=== PATIENT | male | born 1980 | race American Indian/Alaskan Native ===

== ENCOUNTER 2017-01-21 13:39 | Emergency (ER) | payer MEDICAID ==
[2017-01-21] MEDS ORDERED: NORCO 5/325 PO ONE (17:05)
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
[2017-01-21 23:22] VITALS: BP 169/89
== END 2017-01-21 19:45 | disposition home or self-care (01) ==
LOC: ED 13:39
DX: M25.532 Pain in left wrist (principal); M54.2 Cervicalgia; R51 Headache; I10 Essential (primary) hypertension; F17.200 Nicotine dependence, unspecified, uncomplicated; R53.1 Weakness; Z88.2 Allergy status to sulfonamides; V89.2XXA Person injured in unspecified motor-vehicle accident, traffic, initial encounter; Y92.488 Other paved roadways as the place of occurrence of the external cause; Y93.89 Activity, other specified; Y99.9 Unspecified external cause status
CPT/HCPCS: 70450; 71020; 72125

== ENCOUNTER 2017-03-30 19:03 | Emergency (ER) | payer MEDICAID ==
--- NOTE | 2017-03-30 22:14 | Emergency Department Report ---
ED Recheck HPI - General Chief Complaint: Medical Clearance Stated Complaint: MEDICATION REFILL Time Seen by Provider: 03/30/17 21:18 Source: patient Mode of arrival: Ambulatory Limitations: No Limitations - History of Present Illness Initial Comments: This is a 36-year-old male nontoxic, well nourished in appearance, no acute signs of distress presents to the ED with c/o of refill on Keppra. He was here on and received 500 mg of Keppra the patient was presents to receive 1 g of Keppra twice a day. Patient stated Dr. Carlson 's [place] neurologist prescribed him 1 g of Keppra twice a day the patient. Due to no insurance he was not able to follow up with his neurologist. Patient denies any other symptoms. Patient is asymptomatic and just wants medication refill. Patient states allergies to sulfa past medical history of hypertension and seizures. MD Complaint: medication refill request Returns Today for: request for prescription Symptoms Since Prior Visit: no new symptoms Associated Symptoms: none. denies: fever, chills, chest pain, shortness of breath, rash, malaise, nasuea, abdominal pain - Related Data Home Medications Medication Instructions Recorded Confirmed Last Taken Depakote 500 mg PO BID 03/02/17 03/02/17 Unknown Keppra 500 mg PO BID 03/02/17 03/02/17 Unknown Metoprolol 50 mg PO BID 03/02/17 03/02/17 Unknown Previous Rx's Medication Instructions Recorded Last Taken Type Acetaminophen [Acetaminophen TAB] 500 mg PO Q6HR PRN #20 tablet 01/21/17 Unknown Rx Cyclobenzaprine [Flexeril] 10 mg PO TID PRN #12 tablet 01/21/17 Unknown Rx HYDROcodone/APAP 5-325 [[place] 1 each PO Q6HR PRN #10 tablet 01/21/17 Unknown Rx 5/325] Divalproex Sodium [Depakote] 500 mg PO BID #60 tablet. 03/02/17 Unknown Rx Metoprolol [Lopressor TAB] 50 mg PO BID #60 tablet 03/02/17 Unknown Rx levETIRAcetam [Keppra TAB] 500 mg PO BID #60 tablet 03/02/17 Unknown Rx levETIRAcetam [Keppra TAB] 1,000 mg PO BID #60 tab 03/30/17 Unknown Rx Allergies Allergy/AdvReac Type Severity Reaction Status Date / Time Sulfa (Sulfonamide Allergy Unknown Verified 01/21/17 13:45 Antibiotics) ED Review of Systems ROS: Stated complaint: MEDICATION REFILL Other details as noted in HPI Constitutional: denies: chills, fever Eyes: denies: eye pain, eye discharge, vision change ENT: denies: ear pain, throat pain Respiratory: denies: cough, shortness of breath, wheezing Cardiovascular: denies: chest pain, palpitations Endocrine: no symptoms reported Gastrointestinal: denies: abdominal pain, nausea, diarrhea Genitourinary: denies: urgency, dysuria Musculoskeletal: denies: back pain, joint swelling, arthralgia Skin: denies: rash, lesions Neurological: denies: headache, weakness, paresthesias Psychiatric: denies: anxiety, depression Hematological/Lymphatic: denies: easy bleeding, easy bruising ED Past Medical Hx - Past Medical History Hx Hypertension: Yes Hx Seizures: Yes - Surgical History Additional Surgical History: aorta tear repair 11/14 - Social History Smoking Status: Unknown if ever smoked Substance Use Type: None - Medications Home Medications: Home Medications Medication Instructions Recorded Confirmed Last Taken Type Acetaminophen [Acetaminophen TAB] 500 mg PO Q6HR PRN #20 tablet 01/21/17 Unknown Rx Cyclobenzaprine [Flexeril] 10 mg PO TID PRN #12 tablet 01/21/17 03/02/17 Unknown Rx HYDROcodone/APAP 5-325 [[place] 1 each PO Q6HR PRN #10 tablet 01/21/17 03/02/17 Unknown Rx 5/325] Depakote 500 mg PO BID 03/02/17 03/02/17 Unknown History Divalproex Sodium [Depakote] 500 mg PO BID #60 tablet. 03/02/17 Unknown Rx Keppra 500 mg PO BID 03/02/17 03/02/17 Unknown History Metoprolol 50 mg PO BID 03/02/17 03/02/17 Unknown History Metoprolol [Lopressor TAB] 50 mg PO BID #60 tablet 03/02/17 Unknown Rx levETIRAcetam [Keppra TAB] 500 mg PO BID #60 tablet 03/02/17 Unknown Rx levETIRAcetam [Keppra TAB] 1,000 mg PO BID #60 tab 03/30/17 Unknown Rx ED Physical Exam - General Limitations: No Limitations General appearance: alert, in no apparent distress - Head Head exam: Present: atraumatic, normocephalic - Eye Eye exam: Present: normal appearance - ENT ENT exam: Present: mucous membranes moist - Neck Neck exam: Present: normal inspection - Respiratory Respiratory exam: Present: normal lung sounds bilaterally. Absent: respiratory distress - Cardiovascular Cardiovascular Exam: Present: regular rate, normal rhythm. Absent: systolic murmur, diastolic murmur, rubs, gallop - GI/Abdominal GI/Abdominal exam: Present: soft, normal bowel sounds - Rectal Rectal exam: Present: deferred - Extremities Exam Extremities exam: Present: normal inspection - Back Exam Back exam: Present: normal inspection - Neurological Exam Neurological exam: Present: alert, oriented X3 - Psychiatric Psychiatric exam: Present: normal affect, normal mood - Skin Skin exam: Present: warm, dry, intact, normal color. Absent: rash ED Course Vital Signs 03/30/17 19:47 Temperature 98 F Pulse Rate 77 Respiratory 18 Rate Blood Pressure 151/98 O2 Sat by Pulse 100 Oximetry - Reevaluation(s) Reevaluation #1: 03/30/17 22:12 Patient is speaking in full sentences with no signs of distress noted. ED Recheck MDM - Medical Decision Making 36-year-old male that presents with a prescription bottle from Dr. Abdoul Carlson with Keppra 1000 mg twice a day that was prescribed on 11/08/2016. He stated he is homeless and does not have insurance or any money to follow up with a neurologist. Patient is requesting for a refill of his Keppra medication. He is asymptomatic currently. I refilled his medication and offered patient follow -up clinics and providers.. Patient was notified that this medication does cause drowsiness. At time time of discharge, the patient does not seem toxic or ill in appearance. No acute signs of distress noted. Patient agrees to discharge treatment plan of care. No further questions noted by the patient. Critical care attestation.: If time is entered above; I have spent that time in minutes in the direct care of this critically ill patient, excluding procedure time. ED Disposition Clinical Impression: Medication refill Disposition: [id number] TO HOME OR SELFCARE Is pt being admited?: No Does the pt Need Aspirin: No Condition: Stable Instructions: Levetiracetam (By mouth) Additional Instructions: Follow-up with a primary care doctor in 3-5 days or if symptoms worsen and continue return to emergency room as soon as possible. Prescriptions: levETIRAcetam [Keppra TAB] 1,000 mg PO BID #60 tab Referrals: PRIMARY CARE, [Primary Care Provider] - 3-5 Days MARCELO CARMONA MD [Staff Physician] - 3-5 Days [facility] [Outside] - 3-5 Days [facility] [Outside] - 3-5 Days
[2017-03-30 23:01] VITALS: BP 150/94
== END 2017-03-30 23:01 | disposition home or self-care (01) ==
LOC: ED 19:03
DX: Z76.0 Encounter for issue of repeat prescription (principal); I10 Essential (primary) hypertension
CPT/HCPCS: 99282

== ENCOUNTER 2017-05-29 14:07 | Outpatient (CLI) | payer MEDICAID ==
[2017-05-29 14:36] LABS: Hematocrit 40.5 % (35.5-45.6); Hemoglobin 13.5 gm/dl (11.8-15.2); Mean Corpuscular HGB Conc 33 % (32-34); Mean Corpuscular Hemoglobin 28 pg (28-32); Mean Corpuscular Volume 84 fl (84-94); Platelet Count 169 K/mm3 (140-440); Red Blood Count 4.84 M/mm3 (3.65-5.03); Red Cell Distribution Width 17.4 % (13.2-15.2)
[2017-05-29 14:52] LABS: Alanine Aminotransferase 6 units/L (7-56); Albumin 3.3 g/dL (3.9-5); BUN/Creatinine Ratio 12; Blood Urea Nitrogen 11 mg/dL (9-20); Calcium 8.6 mg/dL (8.4-10.2); Hemolysis Index 0
== END 2017-05-29 14:08 | disposition home or self-care (01) ==
LOC: LAB 14:07
PROVIDERS: ATTEND Specialist
DX: G40.209 Localization-related (focal) (partial) symptomatic epilepsy and epileptic syndromes with complex partial seizures, not intractable, without status epilepticus (principal); Z79.899 Other long term (current) drug therapy
CPT/HCPCS: 36415; 80053; 80164; 84443; 85027; 86592